=== PATIENT | female | born 1985 ===

== ENCOUNTER 2025-08-14 14:29 | Emergency (ER) | payer SELFPAY ==
[2025-08-14] MEDS ORDERED: ALPRAZolam 0.25 MG TAB ONE (15:13)
== END 2025-08-14 16:50 | disposition home or self-care (01) ==
LOC: ERS 14:29
DX: Z76.0 Encounter for issue of repeat prescription (principal); F41.9 Anxiety disorder, unspecified; Z87.891 Personal history of nicotine dependence
CPT/HCPCS: 99281